=== PATIENT | female | born 1950 | race Caucasian/White ===

== ENCOUNTER → 2023-12-20 17:10 | Outpatient (REF) | payer MEDICARE, SELFPAY | LOC: CLAB 17:10 | PROVIDERS: ATTENDING PHYSICIAN Student in an Organized Health Care Education/Training Program; FAMILY PHYSICIAN Internal Medicine | DX: D23.72 Other benign neoplasm of skin of left lower limb, including hip (principal) | CPT/HCPCS: 88304 ==